=== PATIENT | female | born 1975 | race African-American/Black ===

== ENCOUNTER 2021-06-25 14:23 | Inpatient (IN) ==
[2021-06-25] MEDS ORDERED: SODIUM CHLORIDE 0.9% 500 ML IV STA ×2 (15:45→19:08)
[2021-06-25 16:52] LABS: Albumin 3.6 G/DL (3.4-5.0); Bilirubin,Total 0.5 MG/DL (0.20-1.00); Calcium 9.2 MG/DL (8.5-10.1); Osmolality,Calculated 278.3 MOS/KG (273-304); Potassium 3.9 MMOL/L (3.5-5.1); Total Protein 7.2 G/DL (6.4-8.2)
[2021-06-25 17:06] LABS: Basophils % 0.3 % (0.0-0.8); Eosinophils % 0.2 % (0.00-10.9); Hematocrit 22.4 VOL% (35.7-47.0); Immature Granulocytes % 0.5 %; Immature Granulocytes Absolute 0.03 #; Lymphocytes # 1.2 10*3/uL (1.4-4.0); Lymphocytes % 19.8 % (21.3-54.2); Mean Corpuscular HGB Conc 22.3 GM/DL (32-36); Mean Corpuscular Volume 62.4 FL (87-102); Mean Platelet Volume 9.9 FL (9.6-12.0); Monocytes % 11.4 % (1.7-12.7); Neutrophils % 67.8 % (38.7-73.9); Platelet Count 343 T/CUMM (130-400); Red Blood Count 3.59 MC/CUMM (3.8-5.5)
[2021-06-25 17:52] LABS: Bilirubin,Urine Negative (Negative); Blood, Urine Negative (Negative); Glucose,Urine (UA) Negative (Negative); Ketones,Urine 20 mg/dL (Negative); Mucus,Urine Occasional /LPF (Occasional); Nitrite,Urine Negative (Negative); Protein,Urine Negative; Squamous Epithelial Cell,Urine Occasional /HPF (0-10); Urine Appearance CLEAR (Clear); Urine Color Amber (Yellow); Urine Specific Gravity 1.016 (1.001-1.035)
[2021-06-25] MEDS ORDERED: SODIUM CHLORIDE 0.9% 1,000 ML IV PRN (19:08)
[2021-06-25] MEDS ORDERED: MORPHINE 2 MG/1 ML SYRINGE IV ONE (19:09)
[2021-06-25] MEDS ORDERED: ONDANSETRON 4 MG/2 ML VIAL IV ONE (19:09)
[2021-06-25] MEDS ORDERED: ONDANSETRON 4 MG/2 ML VIAL IV PRN (19:42)
[2021-06-25] MEDS ORDERED: DEXTROSE 50% 25 GM/50 ML VIAL IV PRN (19:42)
[2021-06-25] MEDS ORDERED: GLUCAGON 1 MG VIAL IM PRN (19:42)
[2021-06-25] MEDS ORDERED: POLYETHYLENE GLYCOL POWDER 17 GM PACK PO PRN (19:51)
[2021-06-25] MEDS ORDERED: MINERAL OIL ENEMA 133 ML BOTTLE RECTAL ONE (19:51)
[2021-06-25] MEDS ORDERED: MAGNESIUM HYDROXIDE SUSP 30 ML UDCUP PO ONE (19:52)
[2021-06-25 20:39] LABS: % Iron Saturation 3.3 % (18-50); Ferritin 2.1 ng/mL (8-252)
[2021-06-25] MEDS ORDERED: INFLUENZA VIRUS VACCINE 0.5 ML SYRINGE IM ONE (23:03)
[2021-06-25] MEDS: PANTOPRAZOLE 40 MG VIAL IV SCH (23:04)
[2021-06-26 00:38] LABS: Folate 19.14 NG/ML (5.38-24.0); Vitamin B12 > 2000 PG/ML (211-911)
[2021-06-26 01:00] LABS: Basophils % 0.5 % (0.0-0.8); Eosinophils % 0.4 % (0.00-10.9); Hematocrit 20.7 VOL% (35.7-47.0); Immature Granulocytes % 0.2 %; Immature Granulocytes Absolute 0.01 #; Lymphocytes # 1.5 10*3/uL (1.4-4.0); Lymphocytes % 26.2 % (21.3-54.2); Mean Corpuscular HGB Conc 23.7 GM/DL (32-36); Mean Corpuscular Volume 60.2 FL (87-102); Mean Platelet Volume 9.9 FL (9.6-12.0); Monocytes % 11.8 % (1.7-12.7); NRBC # 0.02 10*3/uL; Neutrophils % 60.9 % (38.7-73.9); Platelet Count 325 T/CUMM (130-400); Red Blood Count 3.44 MC/CUMM (3.8-5.5); Red Cell Distribution Width 21.9 % (9.3-17.3); White Blood Count 5.5 T/CUMM (4-12)
[2021-06-26 01:01] LABS: Hemoglobin 4.9 GM/DL (12.0-16.0)
[2021-06-26 01:34] LABS: Anisocytosis 2+; Hypochromasia 3+; Microcytosis 2+; Platelet Estimate Normal
[2021-06-26 01:35] LABS: Ovalocytes Few; Tear Drop Cells Few
[2021-06-26 01:36] LABS: Sedimentation Rate-Westergren 32 MM/HR (0-20)
[2021-06-26] MEDS: SODIUM CHLORIDE 0.9% 1,000 ML IV SCH ×2 (06:38→20:13)
[2021-06-26] MEDS ORDERED: SODIUM CHLORIDE 0.9% 1,000 ML IV PRN (07:48)
[2021-06-26 08:19] LABS: Basophils % 0.5 % (0.0-0.8); Eosinophils % 0.6 % (0.00-10.9); Hematocrit 29.3 VOL% (35.7-47.0); Hemoglobin 8.2 GM/DL (12.0-16.0); Immature Granulocytes % 0.3 %; Immature Granulocytes Absolute 0.02 #; Lymphocytes # 1.3 10*3/uL (1.4-4.0); Lymphocytes % 21.1 % (21.3-54.2); Mean Corpuscular Volume 67.5 FL (87-102); Mean Platelet Volume 9.4 FL (9.6-12.0); Monocytes % 12.1 % (1.7-12.7); NRBC # 0.02 10*3/uL; Neutrophils % 65.4 % (38.7-73.9); Platelet Count 292 T/CUMM (130-400); Red Blood Count 4.34 MC/CUMM (3.8-5.5); Red Cell Distribution Width 27.3 % (9.3-17.3); White Blood Count 6.3 T/CUMM (4-12)
[2021-06-26 08:24] LABS: Platelet Estimate Normal
[2021-06-26 08:25] LABS: Anisocytosis 2+; Hypochromasia 1+; Poikilocytosis 1+; Tear Drop Cells Few
[2021-06-26 08:28] LABS: Albumin 3.4 G/DL (3.4-5.0); Bilirubin,Total 0.6 MG/DL (0.20-1.00); Calcium 9.2 MG/DL (8.5-10.1); Osmolality,Calculated 276.3 MOS/KG (273-304); Potassium 3.9 MMOL/L (3.5-5.1); Total Protein 6.8 G/DL (6.4-8.2)
[2021-06-26] MEDS ORDERED: PANTOPRAZOLE 40 MG TABLET PO SCH (09:00)
[2021-06-26] MEDS ORDERED: BISACODYL 5 MG TABLET PO PRN (09:08)
[2021-06-26] MEDS: POLYETHYLENE GLYCOL POWDER 17 GM PACK PO SCH (09:31)
[2021-06-26] MEDS: PANTOPRAZOLE 40 MG VIAL IV SCH ×2 (09:33→20:14)
[2021-06-26] MEDS ORDERED: MAGNESIUM HYDROXIDE SUSP 30 ML UDCUP PO ONE (10:35)
[2021-06-26] MEDS: MORPHINE 2 MG/1 ML SYRINGE IV PRN (14:56)
[2021-06-27] MEDS: MORPHINE 2 MG/1 ML SYRINGE IV PRN ×2 (00:19→16:32)
[2021-06-27] MEDS: SODIUM CHLORIDE 0.9% 1,000 ML IV SCH (02:07)
[2021-06-27 05:52] LABS: Calcium 8.7 MG/DL (8.5-10.1); Osmolality,Calculated 276.3 MOS/KG (273-304); Potassium 3.7 MMOL/L (3.5-5.1)
[2021-06-27 05:57] LABS: Basophils % 0.4 % (0.0-0.8); Eosinophils # 0.1 10*3/uL (0.0-0.87); Eosinophils % 1.6 % (0.00-10.9); Hematocrit 27.1 VOL% (35.7-47.0); Immature Granulocytes % 0.4 %; Immature Granulocytes Absolute 0.03 #; Lymphocytes # 1.6 10*3/uL (1.4-4.0); Lymphocytes % 20.8 % (21.3-54.2); Mean Corpuscular HGB Conc 27.7 GM/DL (32-36); Mean Corpuscular Volume 67.9 FL (87-102); Mean Platelet Volume 9.6 FL (9.6-12.0); Monocytes % 12.1 % (1.7-12.7); NRBC # 0.02 10*3/uL; Neutrophils % 64.7 % (38.7-73.9); Platelet Count 271 T/CUMM (130-400); Red Blood Count 3.99 MC/CUMM (3.8-5.5); Red Cell Distribution Width 27.5 % (9.3-17.3); White Blood Count 7.6 T/CUMM (4-12)
[2021-06-27 06:01] LABS: Hemoglobin 7.5 GM/DL (12.0-16.0)
[2021-06-27] MEDS: PANTOPRAZOLE 40 MG VIAL IV SCH ×2 (09:57→21:25)
[2021-06-27] MEDS: POLYETHYLENE GLYCOL POWDER 17 GM PACK PO SCH (09:57)
[2021-06-28 06:02] LABS: Calcium 8.7 MG/DL (8.5-10.1); Osmolality,Calculated 272.5 MOS/KG (273-304); Potassium 3.8 MMOL/L (3.5-5.1)
[2021-06-28 06:31] LABS: Basophils % 0.3 % (0.0-0.8); Eosinophils # 0.2 10*3/uL (0.0-0.87); Eosinophils % 1.6 % (0.00-10.9); Hematocrit 31.8 VOL% (35.7-47.0); Hemoglobin 9.1 GM/DL (12.0-16.0); Immature Granulocytes % 0.4 %; Immature Granulocytes Absolute 0.04 #; Lymphocytes # 1.4 10*3/uL (1.4-4.0); Lymphocytes % 14.6 % (21.3-54.2); Mean Corpuscular HGB Conc 28.6 GM/DL (32-36); Mean Corpuscular Volume 70.7 FL (87-102); Mean Platelet Volume 9.8 FL (9.6-12.0); Monocytes % 11.6 % (1.7-12.7); Neutrophils % 71.5 % (38.7-73.9); Platelet Count 299 T/CUMM (130-400); White Blood Count 9.7 T/CUMM (4-12)
[2021-06-28 06:34] LABS: Hypochromasia 2+; Microcytosis 2+; Ovalocytes Few
[2021-06-28 06:35] LABS: Platelet Estimate Normal
[2021-06-28 09:31] LABS: Hemoglobin A1 (Alkaline) 97.6 % (96.5-98.5); Hemoglobin A2 (Alkaline) 2.4 % (1.5-3.5)
[2021-06-28] MEDS ORDERED: MAGNESIUM SULF RIDER 2 GM/50 ML PREMIX IV PRN (09:36)
[2021-06-28] MEDS ORDERED: MAGNESIUM SULF RIDER 4 GM/100 ML PREMIX IV PRN (09:36)
[2021-06-28] MEDS: MORPHINE 2 MG/1 ML SYRINGE IV PRN (10:36)
[2021-06-28] MEDS: POLYETHYLENE GLYCOL POWDER 17 GM PACK PO SCH (10:37)
[2021-06-28] MEDS: PANTOPRAZOLE 40 MG VIAL IV SCH ×2 (10:37→21:24)
[2021-06-28] MEDS: LACTULOSE 20 GM/30 ML UDCUP PO SCH ×3 (16:32→21:27)
[2021-06-29] MEDS: LACTULOSE 20 GM/30 ML UDCUP PO SCH ×6 (01:22→21:05)
[2021-06-29 05:00] LABS: Basophils % 0.6 % (0.0-0.8); Eosinophils # 0.3 10*3/uL (0.0-0.87); Eosinophils % 4.5 % (0.00-10.9); Hematocrit 32.8 VOL% (35.7-47.0); Immature Granulocytes % 0.3 %; Immature Granulocytes Absolute 0.02 #; Lymphocytes # 1.5 10*3/uL (1.4-4.0); Lymphocytes % 22.2 % (21.3-54.2); Mean Corpuscular Volume 71.6 FL (87-102); Mean Platelet Volume 9.4 FL (9.6-12.0); Monocytes % 11.5 % (1.7-12.7); Neutrophils % 60.9 % (38.7-73.9); Platelet Count 316 T/CUMM (130-400); Red Blood Count 4.58 MC/CUMM (3.8-5.5); Red Cell Distribution Width 29.1 % (9.3-17.3); White Blood Count 6.7 T/CUMM (4-12)
[2021-06-29 05:26] LABS: Calcium 8.8 MG/DL (8.5-10.1); Osmolality,Calculated 276.4 MOS/KG (273-304)
[2021-06-29 05:47] LABS: Hemoglobin 9.2 GM/DL (12.0-16.0)
[2021-06-29] MEDS: PANTOPRAZOLE 40 MG VIAL IV SCH ×2 (08:20→21:05)
[2021-06-29] MEDS: POLYETHYLENE GLYCOL POWDER 17 GM PACK PO SCH (08:20)
[2021-06-30] MEDS: LACTULOSE 20 GM/30 ML UDCUP PO SCH ×6 (01:56→21:05)
[2021-06-30 05:42] LABS: Calcium 8.9 MG/DL (8.5-10.1); Osmolality,Calculated 274.5 MOS/KG (273-304); Potassium 4.1 MMOL/L (3.5-5.1)
[2021-06-30 05:58] LABS: Basophils # 0.1 10*3/uL (0.0-0.2); Basophils % 0.8 % (0.0-0.8); Eosinophils # 0.3 10*3/uL (0.0-0.87); Eosinophils % 4.6 % (0.00-10.9); Hematocrit 33.1 VOL% (35.7-47.0); Hemoglobin 9.2 GM/DL (12.0-16.0); Immature Granulocytes % 0.3 %; Immature Granulocytes Absolute 0.02 #; Lymphocytes # 1.7 10*3/uL (1.4-4.0); Lymphocytes % 27.4 % (21.3-54.2); Mean Corpuscular HGB Conc 27.8 GM/DL (32-36); Mean Platelet Volume 9.8 FL (9.6-12.0); Monocytes % 12.3 % (1.7-12.7); Neutrophils % 54.6 % (38.7-73.9); Platelet Count 295 T/CUMM (130-400); Red Cell Distribution Width 29.6 % (9.3-17.3); White Blood Count 6.3 T/CUMM (4-12)
[2021-06-30 06:03] LABS: Hypochromasia 2+; Microcytosis 2+
[2021-06-30 06:04] LABS: Platelet Estimate Normal
[2021-06-30] MEDS: POLYETHYLENE GLYCOL POWDER 17 GM PACK PO SCH (10:30)
[2021-06-30] MEDS: PANTOPRAZOLE 40 MG VIAL IV SCH ×2 (10:42→21:05)
[2021-06-30] MEDS: MORPHINE 2 MG/1 ML SYRINGE IV PRN (18:44)
[2021-07-01] MEDS: LACTULOSE 20 GM/30 ML UDCUP PO SCH ×4 (01:51→21:09)
[2021-07-01 07:02] LABS: Osmolality,Calculated 271.8 MOS/KG (273-304); Potassium 4.2 MMOL/L (3.5-5.1)
[2021-07-01 07:19] LABS: Basophils % 0.7 % (0.0-0.8); Eosinophils # 0.3 10*3/uL (0.0-0.87); Eosinophils % 4.8 % (0.00-10.9); Hematocrit 32.9 VOL% (35.7-47.0); Immature Granulocytes % 0.3 %; Immature Granulocytes Absolute 0.02 #; Lymphocytes # 1.6 10*3/uL (1.4-4.0); Lymphocytes % 26.7 % (21.3-54.2); Mean Corpuscular HGB Conc 27.4 GM/DL (32-36); Mean Corpuscular Volume 72.3 FL (87-102); Mean Platelet Volume 9.4 FL (9.6-12.0); Monocytes % 12.9 % (1.7-12.7); Neutrophils % 54.6 % (38.7-73.9); Platelet Count 329 T/CUMM (130-400); Red Blood Count 4.55 MC/CUMM (3.8-5.5); Red Cell Distribution Width 29.7 % (9.3-17.3); White Blood Count 5.9 T/CUMM (4-12)
[2021-07-01] MEDS: PANTOPRAZOLE 40 MG VIAL IV SCH ×2 (10:32→21:09)
[2021-07-01] MEDS: POLYETHYLENE GLYCOL POWDER 17 GM PACK PO SCH ×3 (10:32→21:09)
[2021-07-01] MEDS: IRON (CARBONYL)/VIT C/B12/FA TABLET PO SCH (15:44)
[2021-07-01] MEDS: DOCUSATE SODIUM 100 MG CAPSULE PO SCH ×2 (15:44→21:09)
[2021-07-02 05:23] LABS: Free T4 (Free Thyroxine) 1.14 NG/DL (0.76-1.46); Thyroid Stimulating Hormone < 0.005 uIU/ml (0.358-3.74)
[2021-07-02] MEDS ORDERED: LINACLOTIDE 145 MCG CAPSULE PO SCH (07:30)
[2021-07-02] MEDS: IRON (CARBONYL)/VIT C/B12/FA TABLET PO SCH (10:13)
[2021-07-02] MEDS: PANTOPRAZOLE 40 MG VIAL IV SCH (10:13)
[2021-07-02] MEDS: LACTULOSE 20 GM/30 ML UDCUP PO SCH (10:13)
[2021-07-02] MEDS: POLYETHYLENE GLYCOL POWDER 17 GM PACK PO SCH (10:14)
[2021-07-02] MEDS: DOCUSATE SODIUM 100 MG CAPSULE PO SCH (10:14)
[2021-07-02 12:04] VITALS: BP 122/68
== END 2021-07-02 14:40 | disposition home or self-care (01) | DRG 391 ==
LOC: N.ED 14:23 → N.EDINP 14:23 → N.4E 21:58 → SUATTDRO 06-28 22:17
PROVIDERS: ADMIT Internal Medicine; ATTEND Hospitalist